=== PATIENT | male | born 1995 | race Caucasian/White ===

== ENCOUNTER 2020-02-01 10:04 | Emergency (ER) | payer BC ==
[2020-02-01 10:15] VITALS: BP 106/83; PULSE 72
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
== END 2020-02-01 11:10 | disposition home or self-care (01) ==
LOC: LL.ED 10:04
DX: M25.552 Pain in left hip (principal); F19.10 Other psychoactive substance abuse, uncomplicated; K29.70 Gastritis, unspecified, without bleeding; Z71.6 Tobacco abuse counseling; F17.210 Nicotine dependence, cigarettes, uncomplicated; M89.49 Other hypertrophic osteoarthropathy, multiple sites; Z91.018 Allergy to other foods; W01.0XXA Fall on same level from slipping, tripping and stumbling without subsequent striking against object, initial encounter
CPT/HCPCS: 99283-25